=== PATIENT | female | born 1945 | race Caucasian/White ===

== ENCOUNTER 2019-04-20 17:56 | Inpatient (IN) ==
--- NOTE | 2019-04-20 18:59 | PROVIDER DOCUMENTATION ---
This chart was entered by Carlie Arellano Scribe, acting as scribe for Delvis Spencer DO. HPI-Neurological Disorder - General Source: patient - History of Present Illness-Neuro Headache Location: reports: frontal Severity: reports: moderate Onset/Duration: reports: just prior to arrival Timing: reports: still present Context: reports: other (passed out) Approximate time patient was last seen normal?: 17:00 Character of Altered Mental Status: reports: N/A Any recent trauma/injury?: reports: none Character of Deficits: reports: falling (dizziness) New weakness or altered sensation location:: reports: none Cognitive Baseline: alert, oriented x3 Gait Baseline: walks without assistance Associated Symptoms: reports: headache, decreased ability to walk or stand, nausea, vomiting. denies: loss of consciousness, slurred speech Similar Symptoms Previously?: No Recently seen or treated by another doctor?: No <Delvis Spencer - Last Filed: 04/20/19 21:16> <Lee Koo - Last Filed: 04/20/19 21:33> - General Chief Complaint: Dizziness Stated Complaint: N/V/DIZZINESS Time Seen by Provider: 04/20/19 18:15 Allergies/Adverse Reactions: Patient Allergies Allergy/AdvReac Type Severity Reaction Status Date / Time aspirin Allergy Severe ANAPHYLAXIS Verified 04/09/15 18:46 cyclobenzaprine HCl * Allergy Severe ANAPHYLAXIS Verified 04/09/15 18:46 [From Flexeril] Penicillins Allergy Severe ANAPHYLAXIS Verified 04/09/15 18:46 Salicylates * [Salicylates] Allergy Severe ANAPHYLAXIS Verified 04/09/15 18:46 propranolol Allergy ANAPHYLAXIS Verified 04/09/15 18:46 Home Medications: Home Medication List Medication Instructions Recorded Confirmed Last Taken Type Clonidine [Catapres] 0.2 mg PO BID 04/25/13 04/09/15 04/09/15 07:00 History Fluoxetine [Prozac] 40 mg PO QAM 04/25/13 04/09/15 04/09/15 07:00 History Hydrochlorothiazide 25 mg PO QAM 04/25/13 04/09/15 04/09/15 07:00 History Biotin 10 mg PO DAILY 05/11/13 04/09/15 04/09/15 07:00 History Trazodone HCl 50 mg PO QPM PRN PRN 05/11/13 04/09/15 05/04/14 History 50mg Amlodipine Besylate [Norvasc] 10 mg PO QAM 05/18/14 04/09/15 04/09/15 07:00 History Epinephrine Auto Injector [Epipen] 0.3 mg IM DIRECTED PRN PRN 05/18/14 04/09/15 05/18/14 History 0.3 mg IM Epinephrine [Epipen 2-Joe] 0.3 mg IM PRN #1 pen.injctr 05/18/14 04/09/15 Unknown Rx Hydroxyzine [Atarax] 50 mg PO QPM 05/18/14 04/09/15 04/08/15 19:00 History Methimazole [Tapazole] 10 mg PO TID 05/18/14 04/09/15 04/08/15 19:00 History Zafirlukast [Accolate] 20 mg PO BID 05/18/14 04/09/15 04/09/15 07:00 History Diphenhydramine [Benadryl] 25 mg PO Q4-6H PRN PRN #30 capsule 05/30/14 04/09/15 Unknown Rx Epinephrine [Epipen 2-Joe] 0.3 mg IM DIRECTED PRN PRN #2 05/30/14 04/09/15 Unknown Rx pen.injctr Azithromycin [Zithromax Z-Joe] 250 mg PO DIRECTED #1 pkg 04/09/15 Unknown Rx Methylprednisolone [Medrol Dosepak] 4 mg PO DIRECTED #1 package 04/09/15 Unknown Rx Methocarbamol [Robaxin-750] 750 mg PO BID PRN #60 tablet 02/15/17 Unknown Rx Epinephrine [Epipen 2-Joe] 0.3 mg IJ DIRECTED PRN PRN #1 03/31/18 Unknown Rx pen.injctr - History of Present Illness-Neuro Nature of Presenting Problem: pT IS 74/f presenting to ED via EMS. Pt was at home, sitting in recliner when she became very dizzy and passed out into the floor. Her sts that he helped her to the bathroom afterwards, as she was very nauseous and said the room was spinning. Pt sts that she also has h/a that is severe and primarily in the frontal/forehead area. Pt has hx of HTN, throid disorder and migraines. Pt does state the this h/a is not the same as previous migraine h/a. (Delvis Spencer) Review of Systems - Adult - REVIEW OF SYSTEMS - ADULT Constitutional: reports: no symptoms reported. denies: chills, fever Eyes: reports: no symptoms reported Ears, Nose, Mouth & Throat: reports: no symptoms reported. denies: ear pain, sinus problem Cardiovascular: reports: no symptoms reported. denies: chest pain Respiratory: reports: no symptoms reported Gastrointestinal: reports: nausea, vomiting. denies: abdominal pain, diarrhea Genitourinary: reports: no symptoms reported Musculoskeletal: reports: no symptoms reported Integumentary: reports: no symptoms reported Neurological: reports: dizziness/vertigo, headache/migraines, syncope. denies: slurred speech Psychiatric: reports: no symptoms reported Endocrine: reports: no symptoms reported Hematologic/Lymphatic: reports: no symptoms reported Allergic/Immunologic: reports: no symptoms reported All Other Systems: Reviewed and Negative <Delvis Spencer - Last Filed: 04/20/19 21:16> Past History - Adult - PAST MEDICAL HISTORY-ADULT Review of Records: reports: Old Records Reviewed, Nursing Assessment Review, Medications Reviewed, Social history reviewed & non-contributory. Major Childhood Illnesses: reports: denies history Cardiovascular: reports: HTN Respiratory: reports: denies history Gastrointestinal: reports: denies history Obstetrical/Gynecological: reports: denies history Genitourinary: reports: denies history Musculoskeletal: reports: denies history Neurological: reports: denies history Psychiatric: reports: anxiety Endocrine/Immune: reports: thyroid disorder Other Conditions: reports: other (multiple allergies, anaphylaxis) - PRIOR SURGERIES/PROCEDURES Surgical/Procedure History: reports: hysterectomy, hernia repair - PRIOR HOSPITALIZATIONS Prior Hospitalizations: reports: for other non-related - IMMUNIZATION STATUS Childhood Immunizations: See Nurse Assessment Flu Vaccine: See Nurse Assessment - FAMILY HISTORY Family History: reviewed, not pertinent - SOCIAL HISTORY Smoking: denies, non-smoker Substance Use: none/never Alcohol Use Frequency: never Living Situation: family <Delvis Spencer - Last Filed: 04/20/19 21:16> Physical Exam- Neurological - Physical Exam-Neuro Initial Vital Signs Reviewed: Yes General Appearance: appears well, alert, mild distress Eye Exam: bilateral eye: normal inspection, PERRL HENMT: normocephalic/atraumatic, moist mucous membranes, normal ENT inspection, TMs normal Head Injury: no evidence of injury Neck: non-tender, full range of motion, supple, normal inspection Respiratory: lungs clear Cardiovascular: regular rate, rhythm Extremity: normal range of motion, non-tender, normal gait coat finisher Exam: normal hearing, normal speech, PERRL Coordination/Gait: normal finger to nose, normal gait Motor/Sensory: no motor deficit, no sensory deficit, no pronator drift, negative Babinski's sign Neurologic: grossly normal, other (pt is neurologically intact, but is slow to perform tasks and answer questions.) Integumentary: normal color, warm/dry Psych/Mental Status: normal mood/affect, normal thought content, normal thought process, oriented x 3 - Glascow Coma Scale Best Eye Response: (4) open spontaneously Best Verbal Response: (5) oriented Best Motor Response: (6) obeys commands Total Glascow Score: 15 <Delvis Spencer - Last Filed: 04/20/19 21:16> Progress - PLAN OF CARE/RESULTS Result Diagrams: 04/20/19 19:01 04/20/19 19:01 - CT/MRI 1 CT Study: Head (CT HEAD W/O CONTRAST - 04/20/2019 INDICATION: acute weakness/dizziness COMPARISON: None FINDINGS: The ventricles and sulci are normal in size and contour. No intracranial mass or hemorrhage. There is some mild periventricular white matter chronic microvascular disease. The skull is intact. The sinuses, mastoids, and middle ears are clear. IMPRESSION: Mild cerebral white matter chronic microvascular disease. This exam was performed using automated exposure control, adjustment of mA or kV according to patient size, and/or use of iterative reconstruction technique Electronically signed by Ramiro Fox 04/20/2019 7:19 PM 04/20/191918 Interpreting Physician: Ramiro Fox MD Dictated Date/Time: 04/20/191917 cc: Delvis Spencer DO; Abelardo Segura MD) Impression: Abnormal - CHANGE OF SHIFT REPORT (ED Provider) 1 Report Given and Care Transferred to:: Dr Koo Time of Transfer: 19:00 <Delvis Spencer - Last Filed: 07/27/19 21:16> - PLAN OF CARE/RESULTS Result Diagrams: 04/20/19 19:01 04/20/19 19:01 <Lee Koo - Last Filed: 04/20/19 21:33> - PLAN OF CARE/RESULTS Progress/Plan/Lab Results: Vital Signs - 8 hr 04/20/19 18:07 Pulse Rate 62 Respiratory Rate 18 Blood Pressure 169/73 O2 Sat by Pulse Oximetry 98 Laboratory Results - last 24 hr 04/20/19 04/20/19 04/20/19 18:23 19:01 19:01 WBC RBC Hgb Hct MCV MCH MCHC RDW Std Deviation Plt Count MPV Immature Gran % (Auto) Neut % (Auto) Lymph % (Auto) [place] % (Auto) Eos % (Auto) Baso % (Auto) Immature Gran # (Auto) Neut # (Auto) Lymph # (Auto) [place] # (Auto) Eos # (Auto) Baso # (Auto) Sodium 143 Potassium 3.7 Chloride 103 Carbon Dioxide 25 Anion Gap 15 BUN 27 H Creatinine 1.0 H Estimated GFR/1.73 m2 55 BUN/Creatinine Ratio 27 Glucose 108 H POC Glucose 112 H Calculated Osmolality 291 Calcium 9.3 Total Bilirubin 0.31 AST 21 ALT 16 Alkaline Phosphatase 85 Creatine Kinase 71 Troponin T < 0.010 Total Protein 7.1 Albumin 4.1 Globulin 3.0 Albumin/Globulin Ratio 1.4 Urine Source Urine Color Urine Turbidity Urine pH Ur Specific Purcell Urine Protein Ur Glucose (Stick) Ur Ketones (Stick) Urine Blood Urine Nitrite Urine Bilirubin Urobilinogen Dipstick Urine Leukocytes Urine WBC (Auto) Urine RBC (Auto) U Epithel Cells (Auto) Urine Bacteria (Auto) 04/20/19 04/20/19 19:01 20:22 WBC 8.04 RBC 4.26 Hgb 12.4 Hct 37.5 MCV 88.0 MCH 29.1 MCHC 33.1 RDW Std Deviation 13.2 Plt Count 239 MPV 9.2 Immature Gran % (Auto) 0.0 Neut % (Auto) 57.1 Lymph % (Auto) 28.4 [place] % (Auto) 11.3 H Eos % (Auto) 2.6 Baso % (Auto) 0.6 Immature Gran # (Auto) 0.00 Neut # (Auto) 4.59 Lymph # (Auto) 2.28 [place] # (Auto) 0.91 H Eos # (Auto) 0.21 Baso # (Auto) 0.05 Sodium Potassium Chloride Carbon Dioxide Anion Gap BUN Creatinine Estimated GFR/1.73 m2 BUN/Creatinine Ratio Glucose POC Glucose Calculated Osmolality Calcium Total Bilirubin AST ALT Alkaline Phosphatase Creatine Kinase Troponin T Total Protein Albumin Globulin Albumin/Globulin Ratio Urine Source CLEAN CATCH Urine Color YELLOW Urine Turbidity HAZY Urine pH 6.5 Ur Specific Purcell 1.016 Urine Protein NEGATIVE Ur Glucose (Stick) NEGATIVE Ur Ketones (Stick) NEGATIVE Urine Blood NEGATIVE Urine Nitrite NEGATIVE Urine Bilirubin NEGATIVE Urobilinogen Dipstick NORMAL Urine Leukocytes NEGATIVE Urine WBC (Auto) <10 Urine RBC (Auto) <10 U Epithel Cells (Auto) <10 Urine Bacteria (Auto) 2+ Orders Category Date Time Status CT HEAD W/O CONTRAST [CT] Stat Exams 04/20/19 18:26 Completed CBC WITH ELECTRONIC DIFF [HEME] Stat Lab 04/20/19 19:01 Completed CK PROFILE [SP CHEM] Stat Lab 04/20/19 19:01 Completed COMPREHENSIVE METABOLIC PANEL [CHEM] Stat Lab 04/20/19 19:01 Completed TROPONIN T Stat Lab 04/20/19 19:01 Completed UA NIMS W/REFLEX CULT [URINALYSIS] Stat Lab 04/20/19 20:22 Completed URINE CULTURE [RM] Routine Lab 04/20/19 20:46 Received Ondansetron [Zofran] Med 04/20/19 19:11 Discontinued 4 mg IV NOW ONE EKG [EKG] Stat Ther 04/20/19 18:29 Draft Pt signed out to me by Dr. Spencer, CT and labs negative, pt is still feeling tired and weak, spoke with Dr. Roth and will admit for syncope workup (Lee Koo) Departure <Delvis Spencer - Last Filed: 04/20/19 21:16> - Departure Date of Disposition Decision: 04/20/19 Time of Disposition Decision: 21:32 Certified Medical Emergency: Emergent - Critical Care Note This patient required my direct & personal management of CC.: No <Lee Koo - Last Filed: 04/20/19 21:33> - Departure DIAGNOSIS: Syncope Qualifiers: Syncope type: unspecified Qualified Code(s): R55 - Syncope and collapse Disposition: ADMITTED INPATIENT 09 Condition: Stable Referrals and Follow-Ups: Abelardo Segura MD [Primary Care Provider] - Attestation - Physician/ SONDRA Attestation Patient care was provided by Advanced Practice Provider:: No The physician spent face to face time with patient:: Yes Advanced Practice Provider documentation review:: Supervising physician onsite and consulted in the evaluation and care of this patient. The physician did have a face to face encounter with the patient. <Delvis Spencer - Last Filed: 04/20/19 21:16> - NIH Stroke Scale NIH Type: Initial Evaluation Level of Consciousness: 0-Alert LOC Questions (ask month and age): 0-Answers Both Correctly LOC Commands (ask to open & close eyes;make a fist, let go): 0-Obeys Both Cor rectly Best Gaze (horizontal eye movement): 0-Normal Visual (use finger movement, counting or visual threat): 0-No Visual Loss Facial Palsy (show teeth or raise eyebrows & close eyes tght: 0-Symmetrical Movement Motor Function-left arm: 0-Normal Motor Function-left le-Normal Motor Function-right le-Normal Limb Ataxia(hgtsyv-agbv-myxlob, or heel to donovan): 0-No Ataxia Sensory(pin prick to face,arms,trunk,legs-compare side/side): 0-No Ataxia Best Language(name item/read sentence.Ex-Down to Earth): 0-No Aphasia Dysarthria(Pt read words or say words Ex.Mama,Tip-Top,Thanks: 0-Normal Articulation Extinction and Inattention: 0-Normal <Delvis Spencer - Last Filed: 04/20/19 21:16> This chart was documented by the indicated scribe, (Carlie Arellano Scribe) and accurately reflects the services I performed and decisions made by Johanna raygoza Thomas E. DO, as attested by the provider's signature.
[2019-04-20] MEDS ORDERED: ZOFRAN IV ONE (19:11)
[2019-04-20 19:15] LABS: BASO# 0.05 X1000 (0.0-0.2); BASO% 0.6 % (0.0-0.8); EOS# 0.21 X1000 (0.0-0.7); EOS% 2.6 % (0.0-10.0); HEMATOCRIT 37.5 % (37.0-47.0); HEMOGLOBIN 12.4 g/dL (12.0-16.0); LYMPH# 2.28 X1000 (1.2-3.4); LYMPH% 28.4 % (20.5-51.1); MCH 29.1 PG (27-31); MCHC 33.1 g/dL (33-37); MONO# 0.91 X1000 (0.11-0.59); MONO% 11.3 % (1.7-9.3); MPV 9.2 FL (7.4-10.4); NEUT# 4.59 X1000 (1.4-6.5); NEUT% 57.1 % (42.2-75.2); PLT 239 X1000 (130-400); RBC 4.26 XMIL (4.2-5.4); RDW 13.2 % (11.5-14.5); WBC 8.04 X1000 (4.8-10.8)
--- NOTE | 2019-04-20 19:22 | Diag Imaging Result Doc PS360 ---
CT HEAD W/O CONTRAST - 04/20/2019 INDICATION: acute weakness/dizziness COMPARISON: None FINDINGS: The ventricles and sulci are normal in size and contour. No intracranial mass or hemorrhage. There is some mild periventricular white matter chronic microvascular disease. The skull is intact. The sinuses, mastoids, and middle ears are clear. IMPRESSION: Mild cerebral white matter chronic microvascular disease. This exam was performed using automated exposure control, adjustment of mA or kV according to patient size, and/or use of iterative reconstruction technique Electronically signed by Ramiro Fox 04/20/2019 7:19 PM
[2019-04-20 19:45] LABS: ALB/GLOB RATIO 1.4; ALBUMIN 4.1 g/dL (3.5-5.0); CALCIUM 9.3 mg/dL (8.8-10.2); POTASSIUM 3.7 mmol/L (3.5-5.1); TOTAL BILIRUBIN 0.31 mg/dL (0.20-1.00); TOTAL PROTEIN 7.1 g/dL (6.3-8.3)
--- NOTE | 2019-04-20 19:53 | EKG Report ---
Test Performed on : 04/20/2019 7:41:27 PM Test Reason : acute wealkness Blood Pressure : / mmHG Vent. Rate : 067 BPM Atrial Rate : 067 BPM P-R Int : 184 ms QRS Dur : 094 ms QT Int : 448 ms P-R-T Axes : 021 002 027 degrees QTc Int : 473 ms Normal sinus rhythm. Minimal voltage criteria for LVH, may be normal variant Borderline ECG When compared with ECG of 15-FEB-2017 15:16, Nonspecific T wave abnormality no longer evident in Lateral leads Unconfirmed Result
[2019-04-20 20:35] LABS: URINE SOURCE CLEAN CATCH
[2019-04-20 20:37] LABS: BILIRUBIN URINE NEGATIVE (NEGATIVE); BLOOD URINE NEGATIVE (NEGATIVE); COLOR YELLOW; GLUCOSE URINE NEGATIVE (NEGATIVE); KETONE URINE NEGATIVE (NEGATIVE); LEUKOCYTES URINE NEGATIVE (NEGATIVE); NITRITE URINE NEGATIVE (NEGATIVE); PH URINE 6.5; PROTEIN URINE NEGATIVE (NEGATIVE); SP GRAVITY URINE 1.016; TURBIDITY URINE HAZY (CLEAR); UROBILINOGEN URINE NORMAL (NORMAL)
[2019-04-20 20:38] LABS: UR EPITHELIAL CELLS <10 /HPF (<10); URINE BACTERIA 2+ /HPF; URINE RBC <10 /HPF (<10); URINE WBC <10 /HPF (<10)
[2019-04-20] MEDS ORDERED: TYLENOL PO PRN (21:35)
[2019-04-20] MEDS: LOVENOX SUBQ SCH (23:50)
[2019-04-20] MEDS: NS 1,000 ML IV SCH (23:50)
[2019-04-20] MEDS: WELLBUTRIN PO SCH (23:50)
[2019-04-20] MEDS: BYSTOLIC PO SCH (23:50)
--- NOTE | 2019-04-21 00:01 | HISTORY AND PHYSICAL ---
VINYL CUTTER: Dr. Segura. CHIEF COMPLAINT: Syncopal episode. HISTORY OF PRESENT ILLNESS: Ms Lau is a 74-year-old female who presents to the ER today. The patient has a past medical history of hypertension, migraines, anxiety and depression. The patient states that today she was at home. She stood up from her recliner to go to the bathroom and she passed out. Daughter and were there with her. They called the EMS at that time. The patient was having some difficulty getting up. She did not have any slurred speech. When EMS arrived, the patient was going out on the stretcher and she did vomit at that time. The patient states she has been having a migraine all day. She was nauseous with this migraine and did have some photophobia. She has had a history of migraines in the past. She has not had one in over a year and does not take any medicines for her migraine at this time. The patient stated when she fell she did not hurt herself because she fell on the carpet. The patient states she does still have a dull headache that is across the top of her eyes. She is not having any photophobia at this time. She is not nauseous at this time. The patient states that she was short of breath when she initially passed out, but she is not having shortness of breath at this time. The patient denies any chest pain. She denies any abdominal discomfort, any problems with her bowel or bladder. States that she is able to void without any dysuria, or incontinence or pain. CT of the head in the ER was negative, did show some mild cerebellum white matter for chronic microvascular disease. Urinalysis in the ER did show 2+ bacteria, but there were no leukocytes and no nitrites. The patient is not complaining of any urinary symptoms. The patient states she is not having any dizziness or weakness noted at this time. She does state she has a little numbness noted to her feet, but she has full strength noted. She denies any numbness or tingling anywhere else. PAST MEDICAL HISTORY: Hypertension, anxiety, depression, migraines. PAST SURGICAL HISTORY: Hysterectomy, breast reduction, and cataracts bilateral. FAMILY HISTORY: Her father from prostate cancer and also had heart problems. Her mother is . She had chronic pain and the daughter believes that she took an overdose of her pain medications when she . SOCIAL HISTORY: The patient lives with her , and her daughter and grandchildren in [place]. She does not work. She denies any alcohol, smoking, or illicit drug abuse. ALLERGIES: The patient states that she is allergic to salicylates and any medications that have salicylates in the medicine. She is also allergic to penicillin. MEDICATIONS: Her home medication reconciliation was not done. I went over her medications at the bedside with her. The patient takes potassium chloride 20 mEq daily, vitamin E 400 mg daily, bupropion HCL 100 mg p.o. b.i.d., clonidine 0.2 mg p.o. b.i.d., hydrochlorothiazide 25 mg p.o. daily. Vitamin C 500 mg p.o. daily, Osteo Bi-Flex 1 tablet p.o. at bedtime, Bystolic 10 mg p.o. at bedtime. LABORATORIES AND DIAGNOSTICS: White blood cell count 8.04, red blood cell count 4.26, hemoglobin 12.4, hematocrit 37.5, platelet count is 239,000. Sodium 143, potassium 3.7, BUN is 27, creatinine is 1, estimated GFR is 55, glucose is 108, calcium is 9.3, bilirubin is 0.31, AST is 21, ALT is 16, alkaline phosphatase is 85. Creatine kinase is 71, troponin is 0.01. Magnesium is 2. Urinalysis shows a pH of 6.5. Urine specific gravity is 1.016. It is positive 2+ for bacteria. CT of the head does not show any intracranial mass or hemorrhage but shows some mild cerebral white matter chronic microvascular disease. REVIEW OF SYSTEMS: A 12 point review of systems has been obtained and all is negative except what is stated above in the HPI. PHYSICAL EXAMINATION: VITAL SIGNS: Pulse rate 62, respiratory rate 18, blood pressure 169/73, O2 saturation 98% on room air. Weight 160 pounds. Height 5 feet 5 inches. GENERAL: This is a 74-year-old female. She is lying in the ER stretcher. She is in no acute distress at present time. She is well nourished and well developed. HEENT: Atraumatic, normocephalic. Pupils are equal, round, reactive to light. Sclerae are anicteric. Mucous membranes are moist. No dentition. NECK: Supple. No lymphadenopathy. Trachea is midline. No JVD. No thyromegaly. No bruits. CARDIOVASCULAR: Regular rate and rhythm. No murmurs, gallops, or rubs appreciated. RESPIRATORY: Lung sounds are clear with equal chest excursion. Respirations are nonlabored with no accessory muscle usage. GASTROINTESTINAL: Abdomen is soft, nontender, nondistended. Bowel sounds present x4. NEUROLOGIC: Cranial nerves 2-12 intact. The patient is awake, alert, and oriented. Follows all commands appropriately. No abnormalities. MUSCULOSKELETAL: Full distal strength noted. No deformities. No abnormalities in gait. EXTREMITIES: No clubbing, cyanosis. There is bilateral lower ankle edema. This is trace. DP and PT pulses are present and palpable. SKIN: Warm, dry, and intact. No rashes, bruises, diaphoresis noted. ASSESSMENT AND PLAN: 1. Syncopal episode. We are going to admit this patient to the medical floor. We are going to place her on campus monitor, start on IV fluid hydration. We are going to do orthostatic blood pressures. Repeat labs in the morning. Get an echocardiogram and carotid Doppler studies. Restart all home medications. 2. Hypertension. I have started patient's home blood pressure medications. 3. Migraines. We will start this patient on some p.r.n. pain medication for possible migraine. We are going to do carotid Doppler studies and also do echocardiogram. CT of the head did show some microvascular changes. 4. Dehydration. Creatinine is a little elevated at 1. BUN is a little elevated. We also have a little bit of elevated GFR. We are going to start this patient on some IV fluid hydration and see if this improves. We will recheck labs in the morning. 5. Deep venous thrombosis prophylaxis. I have started this patient on Lovenox daily and NANDO hose. 6. Gastrointestinal prophylaxis. I have placed her on omeprazole daily. We are going to admit this patient to medical floor. We will start her started on some IV fluid hydration. Obtain labs in the morning. We are going to place her on campus monitor and observe blood pressure and heart rate closely. We are going to do some orthostatic blood pressures. We are going to do an echocardiogram and a carotid ultrasound. All further treatment pending hospital course. Dictated by ELEAZAR Morin for Timmy Roth MD I have performed a face to face diagnostic evaluation. Labs/ Xrays- reviewed. Exam- Chest- clear, CV- regular. A/P- syncopal episode- Admit, chexl orthostatic BP and pulse, gentle hydration, check echo. Dr. Roth cc: MD Abelardo Watkins MD [facility]
[2019-04-21] MEDS: NORCO-5 PO PRN ×4 (00:08→21:16)
[2019-04-21 05:48] LABS: BASO# 0.02 X1000 (0.0-0.2); BASO% 0.3 % (0.0-0.8); EOS% 2.6 % (0.0-10.0); HEMATOCRIT 34.8 % (37.0-47.0); HEMOGLOBIN 11.3 g/dL (12.0-16.0); LYMPH# 2.75 X1000 (1.2-3.4); LYMPH% 36.4 % (20.5-51.1); MCH 28.8 PG (27-31); MCHC 32.5 g/dL (33-37); MCV 88.5 FL (81-99); MONO# 0.59 X1000 (0.11-0.59); MONO% 7.8 % (1.7-9.3); MPV 9.4 FL (7.4-10.4); NEUT% 52.9 % (42.2-75.2); PLT 237 X1000 (130-400); RBC 3.93 XMIL (4.2-5.4); RDW 13.1 % (11.5-14.5); WBC 7.56 X1000 (4.8-10.8)
[2019-04-21 06:05] LABS: CALCIUM 8.8 mg/dL (8.8-10.2); CREATININE 1.1 mg/dL (0.5-0.9); MAGNESIUM 1.9 mg/dL (1.5-2.7); POTASSIUM 3.5 mmol/L (3.5-5.1)
[2019-04-21] MEDS: PRILOSEC PO SCH (06:15)
--- NOTE | 2019-04-21 06:40 | EKG Report ---
Test Performed on : 04/21/2019 06:24:24 AM Test Reason : syncope Blood Pressure : / mmHG Vent. Rate : 055 BPM Atrial Rate : 055 BPM P-R Int : 212 ms QRS Dur : 092 ms QT Int : 468 ms P-R-T Axes : 048 011 031 degrees QTc Int : 447 ms Sinus bradycardia. with 1st degree AV block. Otherwise normal ECG When compared with ECG of 20-APR-2019 19:41, (Unconfirmed) No significant change was found Unconfirmed Result
[2019-04-21] MEDS ORDERED: HYDROCHLOROTHIAZIDE PO SCH (09:00)
[2019-04-21] MEDS: WELLBUTRIN PO SCH ×2 (10:22→21:15)
[2019-04-21] MEDS: VITAMIN E PO SCH (10:22)
[2019-04-21] MEDS: KLOR-CON PO SCH (10:23)
[2019-04-21] MEDS: VITAMIN C PO SCH (10:23)
[2019-04-21] MEDS: CATAPRES PO SCH ×2 (10:23→21:16)
[2019-04-21] MEDS: NS 1,000 ML IV SCH (10:25)
[2019-04-21] MEDS ORDERED: IMITREX PO PRN (12:48)
[2019-04-21] MEDS ORDERED: IMITREX PO ONE (12:48)
--- NOTE | 2019-04-21 14:21 | ECHO REPORT ---
ORDER DATE: 04/20/2019 INTERPRETING PHYSICIAN: Dr. Yuval Cazares. ECHOCARDIOGRAPHIC MEASUREMENTS: 1. Interventricular septum 0.7. 2. Left ventricular posterior wall 0.7. 3. Diastolic diameter 5.2. 4. Left atrium 2.8. 5. Aorta 3.7. SUMMARY OF THE 2-DIMENSIONAL IMAGIN. Tricuspid valve is normal. 2. Aortic valve leaflets are trileaflet. 3. Pulmonic valve is normal. 4. Mitral valve is normal. 5. Tricuspid valve is normal. 6. There is mild mitral regurgitation. 7. Mild tricuspid regurgitation. Peak velocity across the tricuspid valve was 2.7 m/sec. 8. Pulmonary artery systolic pressure 40 mmHg. 9. Peak velocity across the aortic valve less than 2 m/sec. By Doppler studies there is no aortic stenosis or regurgitation. 10. Normal left ventricular cavity size. Estimated ejection fraction of 70%. 11. There is no pericardial effusion or obvious intracardiac mass or thrombus seen. cc: Yuval Cazares MD
[2019-04-21] MEDS: ZOFRAN IV PRN ×2 (15:51→20:53)
[2019-04-21] MEDS ORDERED: TORADOL IV ONE (18:58)
[2019-04-21] MEDS ORDERED: TORADOL IV PRN (19:18)
[2019-04-21] MEDS ORDERED: FIORICET PO PRN (19:18)
--- NOTE | 2019-04-21 19:30 | PROGRESS NOTE ---
DATE: 04/21/2019 The patient came in with a syncopal episode with unclear source. She also has migraines. Her workup so far is negative. All testing has been pretty normal. Now she does have hyperthyroidism she has a history of. She has been on Tapazole but currently she is hyperthyroid again and I am not quite sure what her medications are so we are going to see how things look so we will continue to follow, pursue workup or get there and see how things go. cc: Sha Gonzalez MD
[2019-04-21] MEDS: LOVENOX SUBQ SCH (21:16)
[2019-04-21] MEDS: BYSTOLIC PO SCH (21:16)
[2019-04-22] MEDS: NS 1,000 ML IV SCH (01:16)
[2019-04-22] MEDS: NORCO-5 PO PRN (02:37)
[2019-04-22] MEDS: PRILOSEC PO SCH (06:06)
[2019-04-22 07:22] LABS: BASO# 0.02 X1000 (0.0-0.2); BASO% 0.3 % (0.0-0.8); EOS% 2.5 % (0.0-10.0); HEMATOCRIT 36.4 % (37.0-47.0); HEMOGLOBIN 11.8 g/dL (12.0-16.0); LYMPH# 2.46 X1000 (1.2-3.4); LYMPH% 31.1 % (20.5-51.1); MCH 28.6 PG (27-31); MCHC 32.4 g/dL (33-37); MCV 88.3 FL (81-99); MONO# 0.52 X1000 (0.11-0.59); MONO% 6.6 % (1.7-9.3); MPV 9.5 FL (7.4-10.4); NEUT# 4.71 X1000 (1.4-6.5); NEUT% 59.5 % (42.2-75.2); PLT 217 X1000 (130-400); RBC 4.12 XMIL (4.2-5.4); WBC 7.91 X1000 (4.8-10.8)
[2019-04-22 07:39] LABS: CALCIUM 8.3 mg/dL (8.8-10.2); CREATININE 1.2 mg/dL (0.5-0.9); MAGNESIUM 1.8 mg/dL (1.5-2.7); POTASSIUM 3.9 mmol/L (3.5-5.1)
[2019-04-22] MEDS: WELLBUTRIN PO SCH (08:04)
[2019-04-22] MEDS: VITAMIN E PO SCH (08:04)
[2019-04-22] MEDS: CATAPRES PO SCH (08:05)
[2019-04-22] MEDS: KLOR-CON PO SCH (08:05)
[2019-04-22] MEDS: VITAMIN C PO SCH (08:05)
[2019-04-22] MEDS ORDERED: TAPAZOLE PO ONE (10:55)
[2019-04-22 11:40] VITALS: BP 140/57
--- NOTE | 2019-04-23 09:35 | DISCHARGE SUMMARY ---
ADMISSION DATE: 04/20/2019 DISCHARGE DATE: 04/22/2019 DISCHARGE DIAGNOSES: 1. Syncope, possibly arrhythmia. 2. Hyperthyroidism, not controlled. HISTORY AND HOSPITAL COURSE: Briefly, this is a 74-year-old female who came from home with thyroid dysfunction, hypertension. She had just an episode where she passed out. No preceding symptoms. Unclear etiology. She has been having migraines. She was given fluids. Orthostatics were checked and are unremarkable. Head CT was negative. She did appear a bit dehydrated. We continued IV fluids, and she clinically improved. Her carotid ultrasound preliminarily did not show significant stenoses. Her echocardiogram looks good. EF 70%. No major valvular abnormalities. The patient stabilized. However, her TSH is 0.01, and her free T4 is 1.73. It is unclear to me if she is taking any medications for that. Previously, she has been on methimazole, but she is not on that now, and she is not on Synthroid now, but it does look like she has hyperthyroidism now, which may cause arrhythmia or predispose her to arrhythmia, and that is what has caused her syncope. In any case, she will be discharged today. She is stable, feeling better. Follow up with her PCP, who is Dr. Segura, to manage her thyroid function tests, and [facility] to evaluate for a loop monitor to capture any possible cardiac arrhythmia. I went ahead and stopped her hydrochlorothiazide just because she had been dehydrated, but she may need substitution with other medication. She is currently on Norvasc 10 and clonidine 0.2 b.i.d. DISCHARGE CONDITION: Stable. OTHER DISCHARGE MEDICATIONS: Xanax 0.25 p.r.n., Biotin, Prozac 40, Tapazole 10 t.i.d., trazodone 50 daily, Xanax 0.25 b.i.d. cc: MD Abelardo Harp MD [facility]
--- NOTE | 2019-04-23 11:07 | Carotid Study ---
DATE: 04/20/2019 REQUESTING PROVIDER: Vinh. ESCROW MANAGER: Isael. INDICATIONS: Syncope. EQUIPMENT: curated.byid E 9 ultrasound system with a 9 L-D transducer. FINDINGS: Diagram ultrasound images have been scanned in the patient's chart. Peak velocity in the internal system is 65. Peak velocity in the left side is 55. Calculated internal common ratio on the right 0.73 and left 0.65. Calculated stenosis on the right 0 to 39 percent left 0 to 39 percent. There appears to be atherosclerosis noted to bilateral carotid arteries. Both vertebral arteries were antegrade flow by strict velocity criteria. There was no hemodynamically significant flow-limiting stenosis. INTERPRETATION: Although there is atherosclerosis by strict velocity criteria, there is no hemodynamically significant flow-limiting stenosis to bilateral carotid arteries. cc: Kt Regalado MD
== END 2019-04-22 13:18 | disposition home or self-care (01) | DRG 310 ==
LOC: SUPCPDRO → ED 17:56 → 3N 22:38 → SUATTDRO 22:38
PROVIDERS: ATTEND Internal Medicine
CPT/HCPCS: 70450; 80048; 80053; 81001; 82550; 82948; 83735; 84439; 84443; 84445; 84484; 85025; 87077; 87088; 87186; 93005; 93306; 93880; A9270; J1650; J1885; J2405; J7030; XXXXX